=== PATIENT | female | born 1945 | race Caucasian/White ===

== ENCOUNTER → 2016-04-17 | Outpatient (CLI) | payer MEDICARE ==
--- NOTE | 2016-04-17 13:42 | KCIC ---
PROCEDURE Bone mineral density exam HISTORY Degenerative disc disease, postmenopausal, takes calcium supplement COMPARISON 11/11/2011 FINDINGS Bone mineral density exam utilizing DEXA was performed. Left hip bone mineral density was 0.861 grams/centimeter squared which corresponds with a T-score-0.7 and a Z-score 1.0. Lumbar spine bone mineral density was 1.054 grams/centimeter squared with a T-score of 0.1 and a Z-score 2.4. Comparing the lumbar spine, there has been -1.7 percent decrease. Comparing the left hip, there has been-6.6 percent decrease. IMPRESSION 1. There is normal bone density of the lumbar spine and the left hip. Electronically signed by: Stu Lomas MD (Apr 17, 2016 13:41:59)
--- NOTE | 2016-04-18 08:43 | KCIC ---
Bilateral digital screening mammograms with CAD: HISTORY Routine screening. COMPARISON Comparison is made to previous studies dated 04/05/2015 and 04/05/2014. FINDINGS Breast density category B. The skin and nipples show no abnormalities. No abnormal lymph nodes are seen in the axilla. The breast parenchyma shows scattered fibroglandular density. There appears to be a new nodular density to cyst lateral to the nipple line on the CC view of the left breast which measures approximately 6.6 millimeters in greatest dimension. Definite correlate is not seen on the obliques view but recommend further evaluation with additional coned compression views in CC and true lateral projections and ultrasound examination. There are no other new dominant masses, suspicious calcifications or architectural distortions. IMPRESSION New 6.6 millimeter nodular density seen on CC view of the left breast just lateral to the nipple line. Recommend further evaluation with additional coned compression views and ultrasound. This study was interpreted with the benefit of Computerized Aided Detection (CAD). Mammography is not 100% sensitive in detecting breast cancer. Therefore, a self breast exam and a clinical breast exam are very important. A negative mammogram does not negate a clinically suspicious finding and should not result in a delay in biopsying a clinically suspicious abnormality. BI-RADS category 0: Incomplete. Additional imaging is recommended. This patient's information has been entered into a reminder system for the patient to be notified with the results of this examination and a target date for her next mammograms. Electronically signed by: Jacqueline Vaz MD (Apr 18, 2016 08:42:51)
== END | disposition home or self-care (01) ==
LOC: KCIC MAMMO 12:45
PROVIDERS: ATTEND Family Medicine
DX: Z12.31 Encounter for screening mammogram for malignant neoplasm of breast (principal); M51.36 Other intervertebral disc degeneration, lumbar region; M85.88 Other specified disorders of bone density and structure, other site; Z78.0 Asymptomatic menopausal state
CPT/HCPCS: 77080; G0202; 77052; 77067

== ENCOUNTER → 2016-04-24 | Outpatient (CLI) | payer MEDICARE ==
--- NOTE | 2016-04-24 17:04 | KCIC ---
Diagnostic digital mammograms left breast: Reason for examination: Nodular density on screening. Comparison is made to mammographic exam dated 04/17/2016. Additional true lateral and coned compression CC views of the left breast were obtained. With these additional views, the area of nodularity does not appear as defined and may represent superimposed tissues. Further evaluation with ultrasound will follow. Impression: No suspicious abnormalities with additional views. Ultrasound to follow. BI-RADS category 0: Incomplete. Ultrasound to follow. Left breast ultrasound: Ultrasound examination of the left breast and axilla was performed. There is ductal ectasia in the retroareolar position. No other cystic or solid nodules are seen. No abnormal appearing lymph nodes are seen in the axilla. Impression: Ductal ectasia but no suspicious abnormalities evident in the left breast. Recommend 6 month followup with mammogram and ultrasound. BI-RADS category 3: Probably benign. This patient's information has been entered into a reminder system for the patient to be notified with the results of this examination and a target date for her next mammograms. Electronically signed by: Jacqueline Vaz MD (Apr 24, 2016 17:01:57)
== END | disposition home or self-care (01) ==
LOC: KCIC MAMMO 09:13
PROVIDERS: ATTEND Family Medicine
DX: R92.8 Other abnormal and inconclusive findings on diagnostic imaging of breast (principal)
CPT/HCPCS: 76641; G0206

== ENCOUNTER → 2017-01-28 | Outpatient (CLI) | payer MEDICARE ==
--- NOTE | 2017-01-28 11:29 | KCIC ---
DATE: 01/28/2017 EXAM: MAMMO HEYDI DIAG LT, BREAST LEFT HISTORY: Left breast mammographic reduction on follow-up for probably benign findings. COMPARISON: Left breast ultrasound 04/24/2016, mammogram 04/24/2016, 04/17/2016, 04/05/2015 This study was interpreted with the benefit of Computerized Aided Detection (CAD). The breast parenchyma shows scattered fibroglandular densities. Breast parenchyma level B. FINDINGS: CC and MLO views of the left breast were obtained. Targeted ultrasound of the left breast was performed in the retroareolar region from 3-6 o'clock. No suspicious medical stations, masses or areas of architectural distortion are identified in the left breast. Findings are stable from prior mammograms. Targeted ultrasound demonstrates dilated ducts within the retroareolar region, some of which demonstrate echogenic debris. No internal vascularity is identified. Findings are compatible with benign findings. IMPRESSION: Benign findings. Recommend annual screening mammography, for which patient will be due in 6 months. BI-RADS CATEGORY: 2 BENIGN FINDING(S) RECOMMENDED FOLLOW-UP: 12M 12 MONTH FOLLOW-UP PQRS compliance statement: Patient information was entered into a reminder system with a target due date 04/17/2017 for the next mammogram. Mammography is a sensitive method for finding small breast cancers, but it does not detect them all and is not a substitute for careful clinical examination. A negative mammogram does not negate a clinically suspicious finding and should not result in delay in biopsying a clinically suspicious abnormality. "Our facility is accredited by the [employer] Mammography [employer]."
== END | disposition home or self-care (01) ==
LOC: KCIC MAMMO 09:56
PROVIDERS: ATTEND Family Medicine
DX: R92.8 Other abnormal and inconclusive findings on diagnostic imaging of breast (principal)
CPT/HCPCS: 76641; G0206; G0279; 77061; 77065

== ENCOUNTER → 2018-02-02 | Outpatient (CLI) | payer MEDICARE ==
--- NOTE | 2018-02-02 13:54 | KCIC ---
EXAM: Bilateral digital screening mammogram with tomosynthesis. HISTORY: 73-year-old female presents for screening mammography. TECHNIQUE: Full-field digital craniocaudal and mediolateral oblique 2D and 3D tomosynthesis images of both breasts are obtained for evaluation. Computer aided detection with i.MeterD software version 9.3 was applied. COMPARISON: 01/28/2017 BREAST PARENCHYMAL DENSITY: Level B - Scattered fibroglandular densities. FINDINGS: There is no new suspicious mass, microcalcification or region of architectural distortion. There is stable nodularity within the subareolar aspect of the left breast due to dilated ducts demonstrated on a prior sonogram dated 04/24/2016. There are few areas of nodularity which are also stable in appearance, when allowing for differences in patient positioning. IMPRESSION: BI-RADS Category 2: Benign finding(s). RECOMMENDATION: Annual mammography is recommended. If your mammogram demonstrates that you have dense breast tissue, which could hide abnormalities, and if you have other risk factors for breast cancer that have been identified, you might benefit from supplemental screening tests that may be suggested by your ordering physician. Dense breast tissue, in and of itself, is a relatively common condition. This information is not provided to cause undue concern, but rather to raise your awareness and to promote discussion with your physician regarding the presence of other risk factors, in addition to dense breast tissue. A report of your mammography results will be sent to you and your physician. You should contact your physician if you have any questions or concerns regarding this report. Mammography is a sensitive method for finding small breast cancers, but it does not detect them all and is not a substitute for careful clinical examination. A negative mammogram does not negate a clinically suspicious finding and should not result in delay in biopsying a clinically suspicious abnormality. PQRS compliance statement - Patient information was entered into a reminder system with a target due date for the next mammogram. "Our facility is accredited by the [employer] Mammography Program." Electronically signed by: Dolores Lloyd MD (02/02/2018 1:51 PM) [id number]
== END | disposition home or self-care (01) ==
LOC: KCIC MAMMO 12:58
PROVIDERS: ATTEND Family Medicine
DX: Z12.31 Encounter for screening mammogram for malignant neoplasm of breast (principal)
CPT/HCPCS: 77063; 77067

== ENCOUNTER → 2019-02-03 | Outpatient (CLI) | payer MEDICARE ==
--- NOTE | 2019-02-03 18:33 | KCIC ---
Bilateral digital screening mammograms with 3-D tomosynthesis: Reason for examination: Routine screening. Comparison is made to previous studies dated 02/02/2018 and 04/17/2016. Bilateral mammograms in CC and oblique projections were obtained with 2-D imaging and 3-D tomosynthesis imaging on a Siemens Inspiration unit and reviewed on the workstation. Interpretation was made with the benefit of CAD. The skin and nipples show no abnormalities. No abnormal axillary lymph nodes are seen. The breast parenchyma shows scattered fatty and fibroglandular density. (Breast density: Category B.) There appears to be a small circumscribed lesion present in the retroareolar position of the right breast anteriorly which probably represents a cyst but can be further evaluated with coned compression views and ultrasound. There are no other new dominant masses, suspicious calcifications or architectural distortion. Impression: Small nodular density in the retroareolar position of the right breast on oblique view which may represent a cyst but can be further evaluated with additional cone compression views and ultrasound. BI-RADS Category 0: Incomplete. Needs additional imaging evaluation "Our facility is accredited by the [employer] Mammography Program." This patient's information has been entered into a reminder system for the patient to be notified with the results of her examination and a target date for the next mammogram. Electronically signed by: Annamaria Vaz MD (02/03/2019 6:30 PM) [id number]
== END | disposition home or self-care (01) ==
LOC: KCIC MAMMO 14:21
PROVIDERS: ATTEND Family Medicine
DX: Z12.31 Encounter for screening mammogram for malignant neoplasm of breast (principal)
CPT/HCPCS: 77063; 77067

== ENCOUNTER → 2019-02-24 | Outpatient (CLI) | payer MEDICARE ==
--- NOTE | 2019-02-24 14:39 | KCIC ---
Right breast diagnostic digital mammograms: Reason for examination: Nodularity on screening mammogram. Comparison is made to mammographic exam dated 02/03/2019. Coned compression views were obtained in CC and lateral projections. The nodularity is less defined with the additional views. Further evaluation with ultrasound will follow. IMPRESSION: Nodularity is less prominent with additional views. Ultrasound will follow. BI-RADS Category 0: Incomplete. Needs additional imaging evaluation. Right breast ultrasound: Right breast ultrasound including the retroareolar and axillary regions of the right breast was performed. There is ductal ectasia in the retroareolar position with some cystic ductal ectasia in the retroareolar 9:00 position which appears to correlate with the area of mammographic concern. No suspicious nodules are seen. No abnormal appearing lymph nodes are seen in the axilla. IMPRESSION: Cystic ductal ectasia in the retroareolar 9:00 position probably corresponds to the area of mammographic concern. No suspicious abnormalities are seen. Recommend routine mammographic follow-up. BI-RADS Category 2: Benign. "Our facility is accredited by the [employer] Mammography Program." This patient's information has been entered into a reminder system for the patient to be notified with the results of her examination and a target date for the next mammogram. Electronically signed by: Annamaria Vaz MD (02/24/2019 2:36 PM) [id number]
== END | disposition home or self-care (01) ==
LOC: KCIC MAMMO 09:59
PROVIDERS: ATTEND Family Medicine
DX: N60.41 Mammary duct ectasia of right breast (principal)
CPT/HCPCS: 76641; 77065

== ENCOUNTER → 2020-12-06 | Outpatient (CLI) | payer MEDICARE ==
--- NOTE | 2020-12-07 08:27 | KCIC ---
3d digital tomography Bilateral History: Routine screening Comparison: Mammograms from 02/01/2018, 02/24/2019, and 02/03/2019. Findings: Breast Tissue Density B : The breast tissue is composed of mixed fatty and fibroglandular tissue. There are no suspicious masses, malignant appearing calcifications or areas of architectural distorti on. Impression: No evidence of malignancy. Assessment: BI-RADS Category 1: Negative. Recommendation: Routine screening mammograms. The patient will receive a letter with the results in the mail. Patient information is entered into [employer] system with a target due date for the next screening mammogram. The patient will receive a reminder. Electronically signed by: Maria Luisa Melara MD (12/07/2020 8:25 AM) [email or web address]
== END ==
LOC: KCIC MAMMO 12:23
PROVIDERS: ATTEND Family Medicine
DX: Z12.31 Encounter for screening mammogram for malignant neoplasm of breast (principal)
CPT/HCPCS: 77063; 77067